=== PATIENT | female | born 1945 | race Caucasian/White ===

== ENCOUNTER 2019-08-31 12:12 | Inpatient (IN) ==
[2019-08-31] MEDS ORDERED: ACETAMINOPHEN 1,000 MG/100 ML VIAL IV STA (12:29)
[2019-08-31] MEDS ORDERED: SODIUM CHLORIDE 0.9% 1000ML 1,000 ML IV SCH ×2 (12:30)
[2019-08-31] MEDS ORDERED: AMPICILLIN 2,000 MG in SODIUM CHLOR 0.9% AD-VAN 100 ML IV STA (12:46)
[2019-08-31] MEDS ORDERED: VANCOMYCIN CONSULT ACTIVE PRN ×2 (12:46→17:27)
[2019-08-31] MEDS ORDERED: cefTRIAXone SODIUM 2,000 MG/70 ML BAG IV STA (12:46)
[2019-08-31] MEDS ORDERED: VANCOMYCIN HCL 1,500 MG in SODIUM CHLORIDE 0.9% 500 ML IV ONE (12:46)
[2019-08-31] MEDS ORDERED: DEXAMETHASONE **PF** INJ 10 MG/ML VIAL IV ONE (12:49)
[2019-08-31 12:53] LABS: Potassium 3.5 mmol/L (3.5-5.1)
[2019-08-31 12:54] LABS: Albumin Level 3.6 gm/dl (3.4-5.0); BUN Creatinine Ratio 18.1 (10-20); Calcium 8.4 mg/dl (8.5-10.1); Creatinine Clr Calc Pharmacy 43.4 ml/min; Est GFR (African American) 69.8; Est GFR (Non-African American) 60.2
[2019-08-31 12:58] LABS: Albumin Globulin Ratio 1.1 (0.9-2); Bilirubin,Total 0.5 mg/dl (0.2-1); Globulin 3.3 gm/dl (2.5-4.0); Total Protein 6.9 gm/dl (6.4-8.2); Troponin I 0.039 ng/ml (0-0.045)
[2019-08-31 13:00] LABS: Basophils # (auto) 0.01 K/uL (0-0.2); Basophils % (auto) 0.2 %; Hematocrit (blood only) 40.1 % (37-47); Hemoglobin 13.8 g/dL (12.0-16.0); Immature Granulocytes # (auto) 0.02 K/uL (0.00-0.02); Immature Granulocytes % (auto) 0.4 %; Lymphocytes # (auto) 0.46 K/uL (1.2-3.4); Lymphocytes % (auto) 8.9 %; Mean Corpuscular Hgb Conc 34.4 g/dL (32-36); Mean Corpuscular Volume 90.1 fL (80-100); Mean Platelet Volume 9.8 fL (7.4-10.4); Monocytes # (auto) 0.09 K/uL (0.11-0.59); Monocytes % (auto) 1.7 %; Neutrophils # (auto) 4.58 K/uL (1.4-6.5); Neutrophils % (auto) 88.8 %; Platelet Count 96 K/uL (130-400); Platelet Estimate Decreased (Normal); RDW Coefficient of Variation 12.7 % (11.5-14.5); RDW Standard Deviation 42.2 fL (36.4-46.3); Red Blood Count 4.45 M/uL (4.2-5.4); White Blood Count 5.16 K/uL (4.8-10.8)
[2019-08-31 13:27] LABS: Appearance Urine Clear (Clear); Bacteria Urine Automated Negative (Negative); Bilirubin Urine Negative (Negative); Blood Urine Trace (Negative); Color Urine Dark Yellow; Glucose Urine UA Negative (Negative); Ketones Urine 2+ (Negative); Leukocyte Esterase Urine Negative (Negative); Nitrite Urine Negative (Negative); Protein Urine 2+ (Negative); Specific Gravity Urine 1.026 (1.000-1.030); Urobilinogen Urine Negative (Negative); pH Urine 5.5 (4.5-7.5)
--- NOTE | 2019-08-31 13:28 | XRay Report ---
XR chest 1V portable CLINICAL HISTORY: AMS, fever COMPARISON STUDY: No previous studies for comparison. FINDINGS: Minimal parenchymal infiltrate medial left base. Lungs otherwise appear clear. Diaphragms a re smooth. IMPRESSION: Minimal parenchymal infiltrate medial left base. ACT 112: Negative or not required by law. The above report was generated using voice recognition software. It may contain grammatical, syntax or spelling errors. Electronically signed by: Ulises Melendrez M.D. 08/31/2019 1:27 PM
--- NOTE | 2019-08-31 13:48 | CT Scan Report ---
CT SCAN OF THE BRAIN WITHOUT IV CONTRAST CLINICAL HISTORY: Change in mental status. COMPARISON STUDY: No priors. TECHNIQUE: Unenhanced axial CT scan of the brain is performed from the vertex to the skull base. A do se lowering technique was utilized adhering to the principles of ALARA. CT DOSE: 1277.12 mGycm FINDINGS: Brain parenchyma: There are age-related involutional changes noting mild subcortical and periventric ular microangiopathic change. There is no hemorrhage, mass effect, or evidence of acute territorial i schemia by CT criteria. Zuniga-white matter differentiation is preserved. No extra-axial fluid collecti on is seen. Ventricles, sulci, cisterns: Prominent secondary to involutional change. Intracranial vasculature: Intracranial vessels at the skull base are normal as visualized. Calvarium: Unremarkable. Sinuses and mastoids: The visualized paranasal sinuses are clear. The mastoid air cells are well pneu matized. Orbits: The bony orbits are grossly intact. There is a right ocular lens implant. IMPRESSION: There is no hemorrhage, mass effect, or evidence of acute territorial ischemia by CT shirley lemon. ACT 112: Negative or not required by law. Electronically signed by: Sohail Marte M.D. 08/31/2019 1:46 PM
[2019-08-31] MEDS ORDERED: DOXYCYCLINE HYCLATE 100 MG in DEXTROSE 5% 100 ML IV STA (14:36)
--- NOTE | 2019-08-31 14:37 | Electrocardiogram Report ---
Test Reason : Blood Pressure : / mmHG Vent. Rate : 073 BPM Atrial Rate : 073 BPM P-R Int : 162 ms QRS Dur : 076 ms QT Int : 388 ms P-R-T Axes : 055 -44 061 degrees QTc Int : 427 ms Normal sinus rhythm Left axis deviation Septal infarct (cited on or before 28-DEC-2009) Abnormal ECG When compared with ECG of 28-DEC-2009 12:27, Nonspecific T wave abnormality now evident in Lateral leads Confirmed by Kodi Salgado ([id number]) on 08/31/2019 2:36:57 PM Referred By: REFERRED SELF Confirmed By:Kodi Salgado
[2019-08-31 15:10] LABS: Anaplasmosis Smear(Rpt to DOH) Pos for Anaplasma
--- NOTE | 2019-08-31 15:23 | Emergency Department Note ---
History of Present Illness General Chief complaint: Headache Time Seen by Provider: 08/31/19 12:19 Source: family, EMS and RN notes reviewed Mode of arrival: EMS Limitations: altered mental status History of Present Illness Provider complaint: Headache, altered mental status Maximum Pain Intensity: 10 This patient is a 73-year-old female who presents to the emergency department with complaints of headache per family to EMS. Patient apparently has a remote history of severe migraines. She developed a headache, first time in 12 years, 3 days ago. She has been in bed since that time. Her has treated her with Imitrex both yesterday and today without much benefit. Patient has not been eating or drinking except for sips of water at her 's prompting for the last 24 to 36 hours. Patient's family called the ambulance today because symptoms have not improved. They stated she says "okay and yes" to any questioning. Daughter states she has a history of hypothyroidism and hypercholesterolemia in addition to the migraines. She has no recent covert exposures except a trip to [facility] for her 's pacemaker placement. Her states she had a mask on as did he. Patient has had no vomiting or diarrhea according to family, no recent trauma or head injury. She does not take anticoagulants. Home Medications Home Medications Medication Instructions Recorded Confirmed Type levothyroxine 50 mcg PO DAILY 08/31/19 08/31/19 History pravastatin 40 mg PO DAILY 08/31/19 08/31/19 History Allergies Allergy/AdvReac Type Severity Reaction Status Date / Time Unable to Assess Allergy Unverified 08/31/19 14:40 Past Med/Surg History Medical History (Updated 08/31/19 @ 15:25 by Maria Eugenia Barbour MD) Hypercholesterolemia Hypothyroidism Migraines Social History (Updated 08/31/19 @ 15:14 by Maria Eugenia Barbour MD) marital status: Current Living Situation: Spouse Review of Systems Unobtainable due to cognitive status (Altered mental status) Physical Exam Vital Signs Vital Signs - 24 hr 08/31/19 12:30 08/31/19 13:29 08/31/19 14:17 Temperature 39.2 C H Temperature Source Oral Pulse Rate 77 Pulse Rate [Apical] 76 66 Respiratory Rate 18 18 18 Blood Pressure 130/65 Blood Pressure [Left Arm] 122/64 104/55 L Blood Pressure Mean 86 Blood Pressure Mean [Left Arm] 83 71 Pulse Oximetry 93 93 93 Oxygen Delivery Method Room Air Room Air Room Air Sepsis Recent Fever Within 48 Hours Yes Sepsis New/Unexplained Change in Mental Status No Sepsis Action Taken by Nursing No Action Required 08/31/19 14:52 Temperature 37.6 C H Temperature Source Oral Pulse Rate Pulse Rate [Apical] Respiratory Rate Blood Pressure Blood Pressure [Left Arm] Blood Pressure Mean Blood Pressure Mean [Left Arm] Pulse Oximetry Oxygen Delivery Method Sepsis Recent Fever Within 48 Hours Sepsis New/Unexplained Change in Mental Status Sepsis Action Taken by Nursing Vital signs reviewed. Noted to be febrile General: Ill-appearing 73-year-old female, in no significant distress but alte red. HEENT: No scleral icterus/conjunctival injection, PERRLA, neck supple. A traumatic. Dry mucous membranes. Cardiovascular: Regular rate and rhythm, no extra sounds. Pulmonary: Clear to auscultation bilaterally, normal work of breathing. Abdomen: Soft, nontender, nondistended, positive bowel sounds. Musculoskeletal: Atraumatic, no peripheral edema. Neurologic: Patient is arousable and answers yes to most questions. Full range of motion of the neck without pain and is able to follow some commands. Skin: Warm, dry, no rash Procedures Lumbar Puncture Time Out Performed: Yes Patient Position: left lateral decubitus Skin Prep: Povidone-Iodine 1% Local Anesthetic: lidocaine 1% Amount of anesthesia used (mL): 5 Spinal Needle Gauge: 20G Interspace Used: L3-L4 (Unsuccessful) Complications: Need to have other Practitioner Attempt and unable to obtain CSF Course Administered Medications Sodium Chloride (Nss 1000ml) 1,000 mls @ 125 mls/hr IV .Q8H COLE Stop: 09/30/19 12:29 Last Admin: 08/31/19 12:58 Dose: 125 mls/hr Documented by: [id number] Vancomycin HCl 1,500 mg/ (Sodium Chloride) 530 mls @ 200 mls/hr IV NOW ONE Stop: 08/31/19 15:24 Last Admin: 08/31/19 14:16 Dose: 200 mls/hr Documented by: [id number] Doxycycline Hyclate 100 mg/ (Dextrose) 110 mls @ 55 mls/hr IV NOW STA Stop: 08/31/19 16:35 Last Admin: 08/31/19 14:50 Dose: 55 mls/hr Documented by: [id number] Discontinued Medications Dexamethasone Sodium Phosphate (Decadron Pf) 10 mg IV NOW ONE Stop: 08/31/19 12:50 Last Admin: 08/31/19 13:34 Dose: 10 mg Documented by: [id number] Sodium Chloride (Nss 1000ml) 1,000 mls @ 500 mls/hr IV .Q2H COLE Stop: 08/31/19 14:29 Last Admin: 08/31/19 13:24 Dose: 500 mls/hr Documented by: [id number] Acetaminophen (Ofirmev) 1,000 mg in 100 mls @ 400 mls/hr IV NOW STA Stop: 08/31/19 12:43 Last Infusion: 08/31/19 13:13 Dose: 0 mls/hr Documented by: [id number] Admin: 08/31/19 12:58 Dose: 400 mls/hr Documented by: [id number] Ceftriaxone Sodium (Rocephin) 2,000 mg in 70 mls @ 140 mls/hr IV NOW STA Stop: 08/31/19 13:15 Last Infusion: 08/31/19 14:16 Dose: 0 mls/hr Documented by: [id number] Admin: 08/31/19 13:34 Dose: 140 mls/hr Documented by: [id number] Ampicillin Sodium 2,000 mg/ (Sodium Chloride) 100 mls @ 200 mls/hr IV NOW STA Stop: 08/31/19 13:15 Last Admin: 08/31/19 14:16 Dose: 200 mls/hr Documented by: [id number] Critical Care Time Critical Care Time: Yes (40) I have personally spent greater than 40 minutes of critical care time in the direct management of this patient. This includes bedside care, interpretation of diagnostic studies, and testing, discussion with consultants, patient, and family members, and other required patient management activities. This 40 minutes is in excess of all separately billable procedures. Medical Decision Making Differential Diagnosis Differential diagnosis: Etiologies such as meningitis, viral syndrome, otitis, pharyngitis, pneumonia, influenza, tickborne illness such as Lyme/anaplasmosis, urinary tract infection, septic arthritis, soft tissue infectious process, intra-abdominal process, sepsis, bacteremia, as well as others were entertained. Medical Records Attestation: I reviewed the patient's medical records. (Rohan) Home Medications Current Medication List: was personally reviewed by me Laboratory Data Attestation: I reviewed the patient's lab results. Result diagrams: 08/31/19 12:28 08/31/19 12: Lab Results 08/31/19 08/31/19 08/31/19 Range/Units 12:28 12:28 12: WBC 5.16 (4.8-10.8) K/uL RBC 4.45 (4.2-5.4) M/uL Hgb 13.8 (12.0-16.0) g/dL Hct 40.1 (37-47) % MCV 90.1 (80-100) fL MCH 31.0 (25-34) pg MCHC 34.4 (32-36) g/dL RDW Std Deviation 42.2 (36.4-46.3) fL RDW Coeff of Helen 12.7 (11.5-14.5) % Plt Count 96 L (130-400) K/uL MPV 9.8 (7.4-10.4) fL Immature Gran % (Auto) 0.4 % Neut % (Auto) 88.8 % Lymph % (Auto) 8.9 % Mclean % (Auto) 1.7 % Eos % (Auto) 0.0 % Baso % (Auto) 0.2 % Neut # (Auto) 4.58 (1.4-6.5) K/uL Lymph # (Auto) 0.46 L (1.2-3.4) K/uL Mclean # (Auto) 0.09 L (0.11-0.59) K/uL Eos # (Auto) 0.00 (0-0.5) K/uL Baso # (Auto) 0.01 (0-0.2) K/uL Immature Gran # (Auto) 0.02 (0.00-0.02) K/uL Absolute Nucleated RBC 0.00 (0-0) K/uL Nucleated RBC % (auto) 0.0 % Platelet Estimate Decreased L (Normal) Sodium 129 L (136-145) mmol/L Potassium 3.5 (3.5-5.1) mmol/L Chloride 96 L (98-107) mmol/L Carbon Dioxide 22 (21-32) mmol/L Anion Gap 11.0 (3-11) BUN 17 (7-18) mg/dl Creatinine 0.94 (0.6-1.2) mg/dl Est Cr Clr Drug Dosing 43.4 ml/min Est GFR ( Amer) 69.8 Est GFR (Non-Af Amer) 60.2 BUN/Creatinine Ratio 18.1 (10-20) Glucose 112 H (70-99) mg/dl Lactate (0.4-2.0) mmol/L Calcium 8.4 L (8.5-10.1) mg/dl Total Bilirubin 0.5 (0.2-1) mg/dl AST 81 H (15-37) U/L ALT 43 (12-78) U/L Alkaline Phosphatase 37 L (45-117) U/L Troponin I 0.039 (0-0.045) ng/ml Total Protein 6.9 (6.4-8.2) gm/dl Albumin 3.6 (3.4-5.0) gm/dl Globulin 3.3 (2.5-4.0) gm/dl Albumin/Globulin Ratio 1.1 (0.9-2) Urine Color Urine Appearance (Clear) Urine pH (4.5-7.5) Ur Specific [place] (1.000-1.030) Urine Protein (Negative) Urine Glucose (UA) (Negative) Urine Ketones (Negative) Urine Blood (Negative) Urine Nitrite (Negative) Urine Bilirubin (Negative) Urine Urobilinogen (Negative) Ur Leukocyte Esterase (Negative) Urine WBC (Auto) (0-5) /hpf Urine RBC (Auto) (0-4) /hpf U Hyaline Cast (Auto) (0-5) /lpf U Epithel Cells (Auto) (0-5) /lpf Urine Bacteria (Auto) (Negative) Anaplasma Smear See Comment A A. phagocytophilum DNA Cancelled Anaplasma Comment Pos for Anaplasma COVID-19 PCR (Negative) SARS-CoV-2 RNA (RT-PCR) 08/31/19 08/31/19 08/31/19 Range/Units 12:45 12:45 13:00 WBC (4.8-10.8) K/uL RBC (4.2-5.4) M/uL Hgb (12.0-16.0) g/dL Hct (37-47) % MCV (80-100) fL MCH (25-34) pg MCHC (32-36) g/dL RDW Std Deviation (36.4-46.3) fL RDW Coeff of Helen (11.5-14.5) % Plt Count (130-400) K/uL MPV (7.4-10.4) fL Immature Gran % (Auto) % Neut % (Auto) % Lymph % (Auto) % Mclean % (Auto) % Eos % (Auto) % Baso % (Auto) % Neut # (Auto) (1.4-6.5) K/uL Lymph # (Auto) (1.2-3.4) K/uL Mclean # (Auto) (0.11-0.59) K/uL Eos # (Auto) (0-0.5) K/uL Baso # (Auto) (0-0.2) K/uL Immature Gran # (Auto) (0.00-0.02) K/uL Absolute Nucleated RBC (0-0) K/uL Nucleated RBC % (auto) % Platelet Estimate (Normal) Sodium (136-145) mmol/L Potassium (3.5-5.1) mmol/L Chloride (98-107) mmol/L Carbon Dioxide (21-32) mmol/L Anion Gap (3-11) BUN (7-18) mg/dl Creatinine (0.6-1.2) mg/dl Est Cr Clr Drug Dosing ml/min Est GFR ( Amer) Est GFR (Non-Af Amer) BUN/Creatinine Ratio (10-20) Glucose (70-99) mg/dl Lactate (0.4-2.0) mmol/L Calcium (8.5-10.1) mg/dl Total Bilirubin (0.2-1) mg/dl AST (15-37) U/L ALT (12-78) U/L Alkaline Phosphatase (45-117) U/L Troponin I (0-0.045) ng/ml Total Protein (6.4-8.2) gm/dl Albumin (3.4-5.0) gm/dl Globulin (2.5-4.0) gm/dl Albumin/Globulin Ratio (0.9-2) Urine Color Dark Yellow Urine Appearance Clear (Clear) Urine pH 5.5 (4.5-7.5) Ur Specific [place] 1.026 (1.000-1.030) Urine Protein 2+ H (Negative) Urine Glucose (UA) Negative (Negative) Urine Ketones 2+ H (Negative) Urine Blood Trace H (Negative) Urine Nitrite Negative (Negative) Urine Bilirubin Negative (Negative) Urine Urobilinogen Negative (Negative) Ur Leukocyte Esterase Negative (Negative) Urine WBC (Auto) 1-5 (0-5) /hpf Urine RBC (Auto) 10-30 H (0-4) /hpf U Hyaline Cast (Auto) 1-5 (0-5) /lpf U Epithel Cells (Auto) 5-10 H (0-5) /lpf Urine Bacteria (Auto) Negative (Negative) Anaplasma Smear A. phagocytophilum DNA Anaplasma Comment COVID-19 PCR NEGATIVE (Negative) SARS-CoV-2 RNA (RT-PCR) Cancelled 08/31/19 Range/Units 13:03 WBC (4.8-10.8) K/uL RBC (4.2-5.4) M/uL Hgb (12.0-16.0) g/dL Hct (37-47) % MCV (80-100) fL MCH (25-34) pg MCHC (32-36) g/dL RDW Std Deviation (36.4-46.3) fL RDW Coeff of Helen (11.5-14.5) % Plt Count (130-400) K/uL MPV (7.4-10.4) fL Immature Gran % (Auto) % Neut % (Auto) % Lymph % (Auto) % Mclean % (Auto) % Eos % (Auto) % Baso % (Auto) % Neut # (Auto) (1.4-6.5) K/uL Lymph # (Auto) (1.2-3.4) K/uL Mclean # (Auto) (0.11-0.59) K/uL Eos # (Auto) (0-0.5) K/uL Baso # (Auto) (0-0.2) K/uL Immature Gran # (Auto) (0.00-0.02) K/uL Absolute Nucleated RBC (0-0) K/uL Nucleated RBC % (auto) % Platelet Estimate (Normal) Sodium (136-145) mmol/L Potassium (3.5-5.1) mmol/L Chloride (98-107) mmol/L Carbon Dioxide (21-32) mmol/L Anion Gap (3-11) BUN (7-18) mg/dl Creatinine (0.6-1.2) mg/dl Est Cr Clr Drug Dosing ml/min Est GFR ( Amer) Est GFR (Non-Af Amer) BUN/Creatinine Ratio (10-20) Glucose (70-99) mg/dl Lactate 2.6 H* (0.4-2.0) mmol/L Calcium (8.5-10.1) mg/dl Total Bilirubin (0.2-1) mg/dl AST (15-37) U/L ALT (12-78) U/L Alkaline Phosphatase (45-117) U/L Troponin I (0-0.045) ng/ml Total Protein (6.4-8.2) gm/dl Albumin (3.4-5.0) gm/dl Globulin (2.5-4.0) gm/dl Albumin/Globulin Ratio (0.9-2) Urine Color Urine Appearance (Clear) Urine pH (4.5-7.5) Ur Specific [place] (1.000-1.030) Urine Protein (Negative) Urine Glucose (UA) (Negative) Urine Ketones (Negative) Urine Blood (Negative) Urine Nitrite (Negative) Urine Bilirubin (Negative) Urine Urobilinogen (Negative) Ur Leukocyte Esterase (Negative) Urine WBC (Auto) (0-5) /hpf Urine RBC (Auto) (0-4) /hpf U Hyaline Cast (Auto) (0-5) /lpf U Epithel Cells (Auto) (0-5) /lpf Urine Bacteria (Auto) (Negative) Anaplasma Smear A. phagocytophilum DNA Anaplasma Comment COVID-19 PCR (Negative) SARS-CoV-2 RNA (RT-PCR) Imaging Data Attestation: I personally reviewed and interpreted this imaging study as follows: Radiologist's Impression: CT SCAN OF THE BRAIN WITHOUT IV CONTRAST CLINICAL HISTORY: Change in mental status. COMPARISON STUDY: No priors. TECHNIQUE: Unenhanced axial CT scan of the brain is performed from the vertex to the skull base. A dose lowering technique was utilized adhering to the principles of ALARA. CT DOSE: 1277.12 mGycm FINDINGS: Brain parenchyma: There are age-related involutional changes noting mild subcortical and periventricular microangiopathic change. There is no hemorrhage, mass effect, or evidence of acute territorial ischemia by CT criteria. Zuniga- white matter differentiation is preserved. No extra-axial fluid collection is seen. Ventricles, sulci, cisterns: Prominent secondary to involutional change. Intracranial vasculature: Intracranial vessels at the skull base are normal as visualized. Calvarium: Unremarkable. Sinuses and mastoids: The visualized paranasal sinuses are clear. The mastoid air cells are well pneumatized. Orbits: The bony orbits are grossly intact. There is a right ocular lens implant . IMPRESSION: There is no hemorrhage, mass effect, or evidence of acute territorial ischemia by CT criteria. ACT 112: Negative or not required by law. Electronically signed by: Sohail Marte M.D. 08/31/2019 1:46 PM Dictated: 08/31/19 1344 Transcribed: 08/31/19 1344 XR chest 1V portable CLINICAL HISTORY: AMS, fever COMPARISON STUDY: No previous studies for comparison. FINDINGS: Minimal parenchymal infiltrate medial left base. Lungs otherwise appear clear. Diaphragms are smooth. IMPRESSION: Minimal parenchymal infiltrate medial left base. ACT 112: Negative or not required by law. The above report was generated using voice recognition software. It may contain grammatical, syntax or spelling errors. Electronically signed by: Ulises Melendrez M.D. 08/31/2019 1:27 PM Dictated: 08/31/19 1324 Transcribed: 08/31/19 1324 ECG Data Attestation: I personally reviewed and interpreted this ECG as follows: Indication: + altered mental status Rate (beats per minute): 73 Rhythm: + normal sinus ECG Intervals/blocks: + Normal QT-c ECG [place]: + Left axis deviation ECG ST segments: + ST depression (Lateral) ECG Findings: no Q waves (Septal), no PACs and no PVCs Blood Pressure Blood Pressure Findings: Normal blood pressure Blood Pressure Disposition: did not require urgent referral MDM Narrative This patient was evaluated and appeared to be acutely ill. I did call the patient's daughter Clover by phone for most of the history. An order for cardiac monitoring was placed and the patient is found to be in a sinus rhythm at 76 bpm. Chest x-ray was performed and is significant for a minimal left basilar infiltrate. CT scan of the head was performed and is negative. Laboratory evaluation reveals a normal WBC, thrombocytopenia 96,000 and lactate of 2.6. Lumbar puncture was attempted at the bedside but unsuccessful. Given the patient's relative thrombocytopenia, further attempts were deferred to radiology. I discussed this test with Dr. Marte of radiology who will perform an LP under fluoroscopy. Patient did receive IV hydration and IV Tylenol. She was covered with IV vancomycin, IV ceftriaxone and IV ampicillin. I did discuss the case with [facility] hospitalist URI Worrell, who accepted the patient on behalf of Dr. Dumont. IV doxycycline was added on at the recommendation for the possibility of Anaplasma. Laboratory work later confirms Anaplasma. Impression & Plan Acute alteration in mental status, Headache, Fever, Anaplasmosis Discharge Plan Visit Data Chief Complaint: Headache ED Provider: Maria Eugenia Barbour Discharge Problem: Acute alteration in mental status, Headache, Fever, Anaplasmosis Forms Stand Alone Forms: My [facility] Prescriptions Prescriptions: No Action pravastatin 40 mg tablet 40 mg PO DAILY RF: 0 levothyroxine 50 mcg tablet 50 mcg PO DAILY RF: 0 Discharge Problem: Headache Qualifiers: Headache type: other headache syndrome Qualified Code(s): G44.89 - Other headache syndrome Fever Qualifiers: Fever type: unspecified Qualified Code(s): R50.9 - Fever, unspecified
--- NOTE | 2019-08-31 15:40 | Fluoroscopy Report ---
FLUOROSCOPIC GUIDED LUMBAR PUNCTURE CLINICAL HISTORY: Fever. Change in mental status. PROCEDURE: The risks, benefits, and alternatives to the procedure is discussed with the patient who v oiced understanding. Written informed consent was obtained. The patient was placed prone on the fluor oscopy table. The lower back was prepped and draped in the usual sterile fashion. 1% lidocaine was us ed for local anesthesia. A 20-gauge spinal needle was inserted into the L4-L5 interlaminar space, and approximately 10 cc of clear colorless cerebrospinal fluid was removed. The patient tolerated the pr ocedure well. A single spot fluoroscopic image was saved. There were no immediate complications. The patient was then returned to the emergency department for further observation. Fluoroscopy time: 0.3 minutes IMPRESSION: Fluoroscopic guided lumbar puncture with removal of approximately 10 cc of cerebrospinal fluid. There were no immediate complications. ACT 112: Negative or not required by law. Electronically signed by: Sohail Marte M.D. 08/31/2019 3:38 PM
[2019-08-31 16:07] LABS: Appearance CSF Clear; CSF Count Tube # 3; CSF Xanthrochromic No xanthochromia; Color CSF Colorless; Red Blood Cell CSF (A) 0 /uL (0-); Red Blood Cell CSF (B) 0 /uL (0-); Total Protein CSF 35.5 mg/dl (15-45); White Blood Cell CSF (A) 1 /uL (0-5); White Blood Cell CSF (B) 0 /uL (0-5)
--- NOTE | 2019-08-31 17:04 | History & Physical Report ---
Date of Service August 31, 2019 Assessment & Plan (1) Headache: (2) Acute alteration in mental status: (3) Anaplasmosis: (4) Thrombocytopenia: (5) Fever: (6) Migraines: Patient has history of migraine headaches, but she hasn't had one in many years. She initially thought this was a migraine but had no relief with Imitrex. After 3 days of headache without improvement, she was brought to the ED via EMS for evaluation. Upon presentation, patient's mental status was altered, and she was unable to answer questions appropriately. She was given Vancomycin, Ampicillin, Dexamethasone, Ceftriaxone due to concern for meningitis. Head CT was negative. COVID negative. WBC count normal, but noted to have thrombocytopenia. Anaplasma smear sent & noted to be positive. Thrombocytopenia, headache, and fever likely secondary to anaplasma. Mentation improved after abx and steroid. Lactic acid elevated on admission as well- improved when rechecked as well. Clear liquid diet. Advance as tolerated. Aspiration and fall precautions. 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 Recheck CMP in AM (9) Hypothyroidism: Continue levothyroxine. Check TSH (10) DVT prophylaxis: SCDs. Hold medical prophylaxis due to LP today. Admission and Anticipated Discharge Date Admission Date: August 31, 2019 History of Present Illness Chief Complaint: Headache Primary Care Provider: Alexx Morse DO Patient is a 73 yo female with PMHx of hypothyroidism, dyslipidemia, and migraine headaches who presented to the ED via EMS for [place] x 3 days. Upon presentation, the patient had severely altered mental status and was unable to give much history. Upon my exam, patient is alert and oriented x 3 and able to provide some history. She states that she hasn't has migraine headaches for many years, but thought that she was getting one over the weekend. She has had the headache x 3-4 days. She tried Imitrex without relief. She denies vision changes, hearing changes, neck rigidity, palpitations, chest pain, SOB, CASTRO, cough, N/V/D/C, abdominal pain, or urinary symptoms. She states that she has had multiple tick bites in the past- most recently in the spring 2019. She does not recall any rash. She has no history of Lyme Disease or tick borne illness. She denies sweats, chills, or fever at home. Since presentation, the patient was noted to have a fever of 39.2 C. Vitals otherwise are stable. COVID negative. WBC count within normal. Platelet count down to 96. Noted to have hyponatremia with Na+ of 129. Lactate slightly elevated at 2.6. AST elevated to 81. UA showed 2+ protein, 2+ ketones, trace blood and otherwise unremarkable. Head CT was unremarkable. CXR showed minimal parenchymal infiltrate medial left base. Lumbar puncture was completed. Patient received IV Vancomycin, Ampicillin, Ceftriaxone, Dexamethasone, and Doxycycline in the ED. Anaplasmosis smear +. Lumbar puncture pending. Allergies Allergy/AdvReac Type Severity Reaction Status Date / Time Unable to Assess Allergy Unverified 08/31/19 14:40 Home Medications Home Medications Medication Instructions Recorded Confirmed Type levothyroxine 50 mcg PO DAILY 08/31/19 08/31/19 History pravastatin 40 mg PO DAILY 08/31/19 08/31/19 History sumatriptan succinate 50 mg PO DIRECTED 08/31/19 08/31/19 History Past Med/Surg History Medical History (Updated 08/31/19 @ 20:50 by Cathryn Worrell PA-C) Hypercholesterolemia Hypothyroidism Migraines Surgical History (Updated 08/31/19 @ 20:41 by Cathryn Worrell PA-C) H/O arthroscopy of shoulder H/O tubal ligation S/P colonoscopy S/P tonsillectomy Family History (Updated 08/31/19 @ 20:40 by Cathryn Worrell PA-C) Mother Stroke Osteoporosis Father Prostate cancer Social History (Updated 08/31/19 @ 15:14 by Maria Eugenia Barbour MD) Preferred Language: Romanian Communication Ability: Effective Supervisor Vendor Quality Required: No Beliefs That Will Affect Care: None marital status: Current Living Situation: Spouse Other Information That Helps Us Care for You: No Feels Safe at Home: Yes Safety Concerns: Feels Safe At This Time Smoking Status: Never smoker Hx Alcohol Use: No Hx Substance Use: No Review of Systems Review of Systems: All systems reviewed & are unremarkable except as noted in HPI & below Physical Exam Constitutional: well developed and well nourished; no acute distress Eyes: PERRL, conjunctivae normal, anicteric sclerae ENMT: external ear and nose normal, oropharynx normal Neck: trachea midline, no thyromegaly Respiratory: normal respiratory effort, lungs clear to auscultation Cardiovascular: RRR, no murmur, no edema Musculoskeletal: Head/Neck/Chest: normocephalic, head atraumatic and neck supple; full ROM of neck Extremities: extremities normal to inspection Skin: no rashes, warm and dry Neurologic: CN's II-XI intact bilaterally Psychiatric: A+Ox3, euthymic affect Results & Data Results & Data ([facility]) Vital Signs (Past 12 Hours) Vital Signs Temp Pulse Pulse Resp BP BP Pulse Ox 08/31/19 16:15 64 18 119/65 95 08/31/19 16:00 67 18 98/59 L 95 08/31/19 15:43 64 18 96/72 L 95 08/31/19 14:52 37.6 C H 08/31/19 14:17 66 18 104/55 L 93 08/31/19 13:29 76 18 122/64 93 08/31/19 12:30 39.2 C H 77 18 130/65 93 Laboratory Results Laboratory Results - last 24 hr 08/31/19 08/31/19 08/31/19 12:28 12:28 12:28 WBC 5.16 RBC 4.45 Hgb 13.8 Hct 40.1 MCV 90.1 MCH 31.0 MCHC 34.4 RDW Std Deviation 42.2 RDW Coeff of Helen 12.7 Plt Count 96 L MPV 9.8 Immature Gran % (Auto) 0.4 Neut % (Auto) 88.8 Lymph % (Auto) 8.9 Oliver % (Auto) 1.7 Eos % (Auto) 0.0 Baso % (Auto) 0.2 Neut # (Auto) 4.58 Lymph # (Auto) 0.46 L Oliver # (Auto) 0.09 L Eos # (Auto) 0.00 Baso # (Auto) 0.01 Immature Gran # (Auto) 0.02 Absolute Nucleated RBC 0.00 Nucleated RBC % (auto) 0.0 Platelet Estimate Decreased L Peripher Smr Path Cons Sodium 129 L Potassium 3.5 Chloride 96 L Carbon Dioxide 22 Anion Gap 11.0 BUN 17 Creatinine 0.94 Est Cr Clr Drug Dosing 43.4 Est GFR ( Amer) 69.8 Est GFR (Non-Af Amer) 60.2 BUN/Creatinine Ratio 18.1 Glucose 112 H Lactate Calcium 8.4 L Total Bilirubin 0.5 AST 81 H ALT 43 Alkaline Phosphatase 37 L Troponin I 0.039 Total Protein 6.9 Albumin 3.6 Globulin 3.3 Albumin/Globulin Ratio 1.1 Urine Color Urine Appearance Urine pH Ur Specific [place] Urine Protein Urine Glucose (UA) Urine Ketones Urine Blood Urine Nitrite Urine Bilirubin Urine Urobilinogen Ur Leukocyte Esterase Urine WBC (Auto) Urine RBC (Auto) U Hyaline Cast (Auto) U Epithel Cells (Auto) Urine Bacteria (Auto) Fld Lyme DNA (PCR) CSF Appearance CSF Color Xanthrochromic CSF WBC CSF RBC CSF Cell Count Tube # CSF Chemistry Tube # CSF Glucose CSF Total Protein CSF C.neoform/gat PCR CSF CMV DNA (PCR) CSF Enterovirus (PCR) CSF E. coli K1 (PCR) CSF H. influenzae (PCR) CSF HSV I (PCR) CSF HSV II (PCR) CSF HHV 6 (PCR) CSF L.monocytogenes PCR CSF N. meningitidis PCR CSF Parechovirus (PCR) CSF S. agalactiae (PCR) CSF S. pneumoniae (PCR) CSF VZV DNA (PCR) Anaplasma Smear See Comment A A. phagocytophilum DNA Cancelled Anaplasma Comment Pos for Anaplasma Lyme Specimen Source Lyme Disease IgG Ab Lyme Disease IgM Ab COVID-19 PCR SARS-CoV-2 RNA (RT-PCR) 08/31/19 08/31/19 08/31/19 12:45 12:45 13:00 WBC RBC Hgb Hct MCV MCH MCHC RDW Std Deviation RDW Coeff of Helen Plt Count MPV Immature Gran % (Auto) Neut % (Auto) Lymph % (Auto) Oliver % (Auto) Eos % (Auto) Baso % (Auto) Neut # (Auto) Lymph # (Auto) Oliver # (Auto) Eos # (Auto) Baso # (Auto) Immature Gran # (Auto) Absolute Nucleated RBC Nucleated RBC % (auto) Platelet Estimate Peripher Smr Path Cons Sodium Potassium Chloride Carbon Dioxide Anion Gap BUN Creatinine Est Cr Clr Drug Dosing Est GFR ( Amer) Est GFR (Non-Af Amer) BUN/Creatinine Ratio Glucose Lactate Calcium Total Bilirubin AST ALT Alkaline Phosphatase Troponin I Total Protein Albumin Globulin Albumin/Globulin Ratio Urine Color Dark Yellow Urine Appearance Clear Urine pH 5.5 Ur Specific [place] 1.026 Urine Protein 2+ H Urine Glucose (UA) Negative Urine Ketones 2+ H Urine Blood Trace H Urine Nitrite Negative Urine Bilirubin Negative Urine Urobilinogen Negative Ur Leukocyte Esterase Negative Urine WBC (Auto) 1-5 Urine RBC (Auto) 10-30 H U Hyaline Cast (Auto) 1-5 U Epithel Cells (Auto) 5-10 H Urine Bacteria (Auto) Negative Fld Lyme DNA (PCR) CSF Appearance CSF Color Xanthrochromic CSF WBC CSF RBC CSF Cell Count Tube # CSF Chemistry Tube # CSF Glucose CSF Total Protein CSF C.neoform/gat PCR CSF CMV DNA (PCR) CSF Enterovirus (PCR) CSF E. coli K1 (PCR) CSF H. influenzae (PCR) CSF HSV I (PCR) CSF HSV II (PCR) CSF HHV 6 (PCR) CSF L.monocytogenes PCR CSF N. meningitidis PCR CSF Parechovirus (PCR) CSF S. agalactiae (PCR) CSF S. pneumoniae (PCR) CSF VZV DNA (PCR) Anaplasma Smear A. phagocytophilum DNA Anaplasma Comment Lyme Specimen Source Lyme Disease IgG Ab Lyme Disease IgM Ab COVID-19 PCR NEGATIVE SARS-CoV-2 RNA (RT-PCR) Cancelled 08/31/19 08/31/19 08/31/19 13:03 15:14 15:14 WBC RBC Hgb Hct MCV MCH MCHC RDW Std Deviation RDW Coeff of Helen Plt Count MPV Immature Gran % (Auto) Neut % (Auto) Lymph % (Auto) Oliver % (Auto) Eos % (Auto) Baso % (Auto) Neut # (Auto) Lymph # (Auto) Oliver # (Auto) Eos # (Auto) Baso # (Auto) Immature Gran # (Auto) Absolute Nucleated RBC Nucleated RBC % (auto) Platelet Estimate Peripher Smr Path Cons Sodium Potassium Chloride Carbon Dioxide Anion Gap BUN Creatinine Est Cr Clr Drug Dosing Est GFR ( Amer) Est GFR (Non-Af Amer) BUN/Creatinine Ratio Glucose Lactate 2.6 H* Calcium Total Bilirubin AST ALT Alkaline Phosphatase Troponin I Total Protein Albumin Globulin Albumin/Globulin Ratio Urine Color Urine Appearance Urine pH Ur Specific [place] Urine Protein Urine Glucose (UA) Urine Ketones Urine Blood Urine Nitrite Urine Bilirubin Urine Urobilinogen Ur Leukocyte Esterase Urine WBC (Auto) Urine RBC (Auto) U Hyaline Cast (Auto) U Epithel Cells (Auto) Urine Bacteria (Auto) Fld Lyme DNA (PCR) CSF Appearance CSF Color Xanthrochromic CSF WBC CSF RBC CSF Cell Count Tube # CSF Chemistry Tube # 1 CSF Glucose 65 CSF Total Protein 35.5 CSF C.neoform/gat PCR CSF CMV DNA (PCR) CSF Enterovirus (PCR) CSF E. coli K1 (PCR) CSF H. influenzae (PCR) CSF HSV I (PCR) CSF HSV II (PCR) CSF HHV 6 (PCR) CSF L.monocytogenes PCR CSF N. meningitidis PCR CSF Parechovirus (PCR) CSF S. agalactiae (PCR) CSF S. pneumoniae (PCR) CSF VZV DNA (PCR) Anaplasma Smear A. phagocytophilum DNA Anaplasma Comment Lyme Specimen Source Lyme Disease IgG Ab Pending Lyme Disease IgM Ab Pending COVID-19 PCR SARS-CoV-2 RNA (RT-PCR) 08/31/19 08/31/19 08/31/19 15:14 15:14 15:14 WBC RBC Hgb Hct MCV MCH MCHC RDW Std Deviation RDW Coeff of Helen Plt Count MPV Immature Gran % (Auto) Neut % (Auto) Lymph % (Auto) Oliver % (Auto) Eos % (Auto) Baso % (Auto) Neut # (Auto) Lymph # (Auto) Oliver # (Auto) Eos # (Auto) Baso # (Auto) Immature Gran # (Auto) Absolute Nucleated RBC Nucleated RBC % (auto) Platelet Estimate Peripher Smr Path Cons Sodium Potassium Chloride Carbon Dioxide Anion Gap BUN Creatinine Est Cr Clr Drug Dosing Est GFR ( Amer) Est GFR (Non-Af Amer) BUN/Creatinine Ratio Glucose Lactate Calcium Total Bilirubin AST ALT Alkaline Phosphatase Troponin I Total Protein Albumin Globulin Albumin/Globulin Ratio Urine Color Urine Appearance Urine pH Ur Specific [place] Urine Protein Urine Glucose (UA) Urine Ketones Urine Blood Urine Nitrite Urine Bilirubin Urine Urobilinogen Ur Leukocyte Esterase Urine WBC (Auto) Urine RBC (Auto) U Hyaline Cast (Auto) U Epithel Cells (Auto) Urine Bacteria (Auto) Fld Lyme DNA (PCR) Pending CSF Appearance Clear CSF Color Colorless Xanthrochromic No xanthochromia CSF WBC 1 CSF RBC 0 CSF Cell Count Tube # 3 CSF Chemistry Tube # Cancelled CSF Glucose Cancelled CSF Total Protein CSF C.neoform/gat PCR Pending CSF CMV DNA (PCR) Pending CSF Enterovirus (PCR) Pending CSF E. coli K1 (PCR) Pending CSF H. influenzae (PCR) Pending CSF HSV I (PCR) Pending CSF HSV II (PCR) Pending CSF HHV 6 (PCR) Pending CSF L.monocytogenes PCR Pending CSF N. meningitidis PCR Pending CSF Parechovirus (PCR) Pending CSF S. agalactiae (PCR) Pending CSF S. pneumoniae (PCR) Pending CSF VZV DNA (PCR) Pending Anaplasma Smear A. phagocytophilum DNA Anaplasma Comment Lyme Specimen Source Pending Lyme Disease IgG Ab Lyme Disease IgM Ab COVID-19 PCR SARS-CoV-2 RNA (RT-PCR) 08/31/19 15:59 WBC RBC Hgb Hct MCV MCH MCHC RDW Std Deviation RDW Coeff of Helen Plt Count MPV Immature Gran % (Auto) Neut % (Auto) Lymph % (Auto) Oliver % (Auto) Eos % (Auto) Baso % (Auto) Neut # (Auto) Lymph # (Auto) Oliver # (Auto) Eos # (Auto) Baso # (Auto) Immature Gran # (Auto) Absolute Nucleated RBC Nucleated RBC % (auto) Platelet Estimate Peripher Smr Path Cons Sodium Potassium Chloride Carbon Dioxide Anion Gap BUN Creatinine Est Cr Clr Drug Dosing Est GFR ( Amer) Est GFR (Non-Af Amer) BUN/Creatinine Ratio Glucose Lactate 0.8 Calcium Total Bilirubin AST ALT Alkaline Phosphatase Troponin I Total Protein Albumin Globulin Albumin/Globulin Ratio Urine Color Urine Appearance Urine pH Ur Specific [place] Urine Protein Urine Glucose (UA) Urine Ketones Urine Blood Urine Nitrite Urine Bilirubin Urine Urobilinogen Ur Leukocyte Esterase Urine WBC (Auto) Urine RBC (Auto) U Hyaline Cast (Auto) U Epithel Cells (Auto) Urine Bacteria (Auto) Fld Lyme DNA (PCR) CSF Appearance CSF Color Xanthrochromic CSF WBC CSF RBC CSF Cell Count Tube # CSF Chemistry Tube # CSF Glucose CSF Total Protein CSF C.neoform/gat PCR CSF CMV DNA (PCR) CSF Enterovirus (PCR) CSF E. coli K1 (PCR) CSF H. influenzae (PCR) CSF HSV I (PCR) CSF HSV II (PCR) CSF HHV 6 (PCR) CSF L.monocytogenes PCR CSF N. meningitidis PCR CSF Parechovirus (PCR) CSF S. agalactiae (PCR) CSF S. pneumoniae (PCR) CSF VZV DNA (PCR) Anaplasma Smear A. phagocytophilum DNA Anaplasma Comment Lyme Specimen Source Lyme Disease IgG Ab Lyme Disease IgM Ab COVID-19 PCR SARS-CoV-2 RNA (RT-PCR) Diagnostic Findings Head CT: IMPRESSION: There is no hemorrhage, mass effect, or evidence of acute territorial ischemia by CT criteria. CXR: IMPRESSION: Minimal parenchymal infiltrate medial left base. Code Status & VTE Plan VTE Prophylaxis Plan VTE Prophylaxis will be ordered: Yes Supervising Physician Co-Signing Physician Notes Patient is a 73-year-old female with history of hypothyroidism, dyslipidemia, migraines and other medical problems presents with history of worsening headache since 3 days duration. Also noted to have some altered mental status noted by family. Currently she is oriented x3 while in ED. States that her migraine is well controlled although her headache has been bothering her since last 3 days. Admits to having multiple tick bites recently. Please review HPI for complete details of presentation. CT head showed no acute process. Patient had lumbar puncture while in ED given headache associated with fever. On exam patient is moderately built and nourished, normocephalic atraumatic, no neck rigidity, oriented x3, lungs are clear to auscultation, normal breath sounds, S1-S2, no murmur, abdomen soft nontender, normal bowel sounds, no pedal edema, grossly no focal neurological deficits. Lumbar puncture not suggestive of meningitis. Patient is admitted for management of altered mental status, likely secondary to anaplasmosis. Peripheral smear consistent with anaplasmosis. Also noted thrombocytopenia. Code screen is negative. Patient will be treated with Rocephin, doxycycline for now. Was empirically treated for possible meningitis while in ED. Agree with neuro checks, aspiration precautions. Advance diet as tolerated. Also noted hyponatremia. Will get urine osmolality, urine sodium. We will give gentle IV fluids. Monitor sodium levels. Microscopic hematuria noted on UA. No gross hematuria. Will repeat UA tomorrow. Left basal infiltrate noted on chest x-ray x-ray. She denies any respiratory symptoms. Already getting treatment for anaplasmosis with Rocephin, doxy which we are planning to continue. Lactate levels normalized with IV fluids. I personally reviewed the record. Patient is interviewed and examined at bedside. Patient's care is coordinated with Cathryn Worrell PA-C. Please refer to the documentation above for details of patient's presentation and for discussion of other issues. (1) Fever Fever type: unspecified Qualified Code(s): R50.9 - Fever, unspecified (2) Headache Headache type: other headache syndrome Qualified Code(s): G44.89 - Other headache syndrome
[2019-08-31 17:37] LABS: Cytomegalovirus PCR Not Detected (NotDetected); Escherichia coli K1 PCR Not Detected (NotDetected); Haemophilius influenzae PCR Not Detected (NotDetected); Listeria monocytogenes PCR Not Detected (NotDetected); Neisseria meningitidis PCR Not Detected (NotDetected); Streptococcus agalactiae PCR Not Detected (NotDetected); Streptococcus pneumoniae PCR Not Detected (NotDetected)
[2019-08-31 17:38] LABS: Cryptococcus neoformans/ga PCR Not Detected (NotDetected); Enterovirus PCR Not Detected (NotDetected); Herpes Simplex Virus 1 PCR Not Detected (NotDetected); Herpes Simplex Virus 2 PCR Not Detected (NotDetected); Human Herpes Virus 6 PCR Not Detected (NotDetected); Human Parechovirus PCR Not Detected (NotDetected); Varicella Zoster Virus PCR Not Detected (NotDetected)
[2019-08-31 17:39] LABS: Lyme Ab IgG w/WB Rflx Negative (Negative); Lyme Ab IgM w/WB Rflx Negative (Negative)
[2019-08-31] MEDS ORDERED: ENOXAPARIN INJ 40 MG/0.4 ML SYR SQ SCH (18:00)
[2019-08-31] MEDS: SODIUM CHLOR 0.45% + 20MEQ KCL 20 MEQ/1,000 ML BAG IV SCH (18:16)
--- NOTE | 2019-08-31 20:10 | Pharmacy Report ---
Pharmacy Abx Initial Consult - Date of Service August 31, 2019 - Pharmacy Dosing Scope Date of Consult: 08/31/19 Consultation requested by: Cathryn Worrell PA-C Pharmacy is consulted to initiate vancomycin IV dosing therapy, order appropriate labs and adjust drug dose/frequency. - Subjective The patient is a 73 year old F admitted on 08/31/19 15:46. - Objective Height: 5 ft Weight: 60.8 kg Vital Signs (Past 12hrs): Vital Signs Temp Pulse Pulse Pulse Resp BP BP 08/31/19 18:39 36.4 C L 64 16 08/31/19 18:09 63 16 08/31/19 17:09 36.3 C L 64 16 08/31/19 17:02 36.3 C L 59 L 18 108/70 08/31/19 16:15 64 18 119/65 08/31/19 16:00 67 18 98/59 L 08/31/19 15:43 64 18 96/72 L 08/31/19 14:52 37.6 C H 08/31/19 14:17 66 18 104/55 L 08/31/19 13:29 76 18 122/64 08/31/19 12:30 39.2 C H 77 18 130/65 BP Pulse Ox 08/31/19 18:39 111/65 93 08/31/19 18:09 105/63 92 08/31/19 17:09 98/62 L 93 08/31/19 17:02 94 08/31/19 16:15 95 08/31/19 16:00 95 08/31/19 15:43 95 08/31/19 14:52 08/31/19 14:17 93 08/31/19 13:29 93 08/31/19 12:30 93 Lab Results (24hrs): Laboratory Tests (24 Hours) 08/31/19 08/31/19 12:28 12:28 WBC 5.16 Neut # (Auto) 4.58 Creatinine 0.94 Est Cr Clr Drug Dosing 43.4 Micro Results: 08/31/19 15:14 CSF Culture - Pending Cerebral Spinal Fluid 08/31/19 13:03 Aerobic Blood Culture - Pending Blood Anaerobic Blood Culture - Pending 08/31/19 12:28 Aerobic Blood Culture - Pending Blood Anaerobic Blood Culture - Pending - Assessment & Plan Assessment 73 year old F presenting with severe altered mental status and headache x 3-4 days. Lumbar puncture completed in the ED and patient started on broad spectrum empiric antibiotics to include coverage for possible bacterial meningitis. Appears unlikely based on lumbar puncture. Will follow blood and CSF cultures. Chest xray revealed minimal parenchymal infiltrate medial left base. Plan Vancomycin IV * Patient meets criteria for vancomycin AUC dosing nomogram * AUC/ROBERT is the preferred PK/PD target for vancomycin * Target AUC/ROBERT = 400-600 * AUC guided dosing is effective and associated with decreased risk of nephrotoxicity * Unsure of baseline renal function - will need to reassess renal function tomorrow * Will order vanco trough if continued beyond 48 hours Ceftriaxone IV * Given empirically covering for bacterial meningitis - dose increased to 2 g IV q12h * If meningitis ruled out - change back to q24h dosing Doxycycline PO * 100 mg PO BID - appropriate * Treating for possible anaplasmosis (intracytoplasmic neutrophilic inclusions noted) Pharmacy will continue to follow and will adjust dose/frequency as necessary. Thank you.
[2019-08-31 21:36] LABS: Thyroid Stimulating Hormone 0.142 uIu/ml (0.300-4.500)
[2019-08-31 21:48] LABS: T4 Free Thyroxine 1.13 ng/dl (0.8-1.6)
[2019-08-31] MEDS: DOXYCYCLINE HYCLATE 100 MG CAP PO SCH (22:09)
[2019-09-01 01:38] LABS: Hematocrit (blood only) 39.4 % (37-47); Hemoglobin 13.8 g/dL (12.0-16.0); Mean Corpuscular Hemoglobin 31.1 pg (25-34); Mean Corpuscular Volume 88.7 fL (80-100); RDW Standard Deviation 42.1 fL (36.4-46.3); Red Blood Count 4.44 M/uL (4.2-5.4); White Blood Count 4.17 K/uL (4.8-10.8)
[2019-09-01] MEDS ORDERED: cefTRIAXone SODIUM 2,000 MG in DEXTROSE 5% 50 ML IV SCH ×2 (02:00→14:00)
[2019-09-01 02:03] LABS: Mean Platelet Volume 9.9 fL (7.4-10.4); Platelet Count 65 K/uL (130-400)
[2019-09-01 02:04] LABS: Albumin Globulin Ratio 0.9 (0.9-2); BUN Creatinine Ratio 19.9 (10-20); Bilirubin,Total 0.4 mg/dl (0.2-1); Calcium 7.4 mg/dl (8.5-10.1); Creatinine Clr Calc Pharmacy 49.2 ml/min; Est GFR (African American) 81.1; Globulin 3.5 gm/dl (2.5-4.0); Potassium 4.1 mmol/L (3.5-5.1); Total Protein 6.5 gm/dl (6.4-8.2)
[2019-09-01] MEDS: LEVOTHYROXINE SODIUM 50 MCG TABLET PO SCH (05:24)
[2019-09-01] MEDS: SODIUM CHLOR 0.45% + 20MEQ KCL 20 MEQ/1,000 ML BAG IV SCH (06:16)
[2019-09-01] MEDS: PRAVASTATIN SOD 40 MG TAB PO SCH (08:11)
[2019-09-01] MEDS: DOXYCYCLINE HYCLATE 100 MG CAP PO SCH ×2 (08:11→20:02)
[2019-09-01 09:59] LABS: Appearance Urine Clear (Clear); Bilirubin Urine Negative (Negative); Blood Urine Trace (Negative); Color Urine Yellow; Glucose Urine UA Negative (Negative); Ketones Urine Negative (Negative); Leukocyte Esterase Urine Negative (Negative); Nitrite Urine Negative (Negative); Protein Urine Negative (Negative); Specific Gravity Urine 1.006 (1.000-1.030); Urobilinogen Urine Negative (Negative); pH Urine 6.5 (4.5-7.5)
[2019-09-01 10:34] LABS: Epithelial Cell Urine 0-5 /lpf (0-5); RBC Urine 0-4 /hpf (0-4); WBC Urine 0-5 /hpf (0-5)
[2019-09-01 10:35] LABS: Bacteria Urine Negative (Negative)
[2019-09-01] MEDS: cefTRIAXone SODIUM 2,000 MG in DEXTROSE 5% 50 ML IV SCH (12:06)
[2019-09-01] MEDS: CALCIUM CARBONATE 500 MG CHEWABLE TAB PO PRN (12:34)
[2019-09-01] MEDS ORDERED: VANCOMYCIN HCL 1,250 MG in SODIUM CHLORIDE 0.9% 250 ML IV SCH (14:00)
[2019-09-01] MEDS: ACETAMINOPHEN 325 MG TAB PO PRN (20:01)
--- NOTE | 2019-09-01 20:47 | Hospitalist Progress Note ---
Date of Service September 01, 2019 Assessment & Plan (1) Headache: (2) Acute alteration in mental status: (3) Anaplasmosis: (4) Thrombocytopenia: (5) Fever: (6) Migraines: Patient has history of migraine headaches, but she hasn't had one in many years. She initially thought this was a migraine but had no relief with Imitrex. After 3 days of headache without improvement, she was brought to the ED via EMS for evaluation. Upon presentation, patient's mental status was altered, and she was unable to answer questions appropriately. She was given Vancomycin, Ampicillin, Dexamethasone, Ceftriaxone due to concern for meningitis. LP obtained, unremarkable. Head CT was negative. COVID negative. WBC count normal, but noted to have thrombocytopenia. Anaplasma smear sent & noted to be positive. Thrombocytopenia, headache, and fever likely secondary to anaplasma. Mentation improved after abx and steroid. Currently mental status back to baseline. Lactic acid elevated on admission as well- improved when rechecked as well. Clear liquid diet. Advance as tolerated. Aspiration and fall precautions. 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 Recheck CMP in AM (9) Hypothyroidism: Continue levothyroxine. Check TSH (10) DVT prophylaxis: SCDs. Admission and Anticipated Discharge Date Admission Date: August 31, 2019 Subjective Pt is sitting up in chair, in NAD. She is alert and oriented, answering questions appropriately. Says yesterday " she was out of it". She still feels quite week. She has Hair catheter that was placed yesterday in ED as she was incontinent. Pt wants to keep Hair for now. Will re-address again tomorrow, or later today. Poor appetite, says food tastes too salty, will place on low sodium diet. Pt now remains afebrile , but she was febrile in ED yesterday. Review of Systems Review of Systems: All systems reviewed & are unremarkable except as noted in HPI & below Constitutional: no fever and no chills Respiratory: no cough and no dyspnea Cardiovascular: no chest pain and no palpitations Gastrointestinal: no abdominal pain, no nausea and no vomiting Physical Exam Physical Exam: Constitutional: elderly female sitting up in a chair, well developed and well nourished; no acute distress Eyes: PERRL, conjunctivae normal, anicteric sclerae ENMT: external ear and nose normal, oropharynx normal Neck: trachea midline, no thyromegaly Respiratory: normal respiratory effort, lungs clear to auscultation Cardiovascular: RRR, no murmur, no edema Musculoskeletal: Head/Neck/Chest: normocephalic, head atraumatic and neck supple; full ROM of neck Extremities: extremities normal to inspection Abdomen: bowel sounds present, soft, no tenderness to palpation : Hair catheter placed, drains clear yellow urine Skin: no rashes, warm and dry Neurologic: no facial asymmetry, speech fluent, moves extremities spontaneously Psychiatric: A+Ox3, euthymic affect Results & Data Results & Data ([facility]) Vital Signs (Past 12 Hours) Vital Signs Temp Pulse Pulse Resp BP BP Pulse Ox 09/01/19 19:15 37.5 C 63 18 118/72 94 09/01/19 16:16 36.8 C 60 18 119/73 97 09/01/19 12:32 36.8 C 69 18 114/73 95 Laboratory Results 09/01/19 09/01/19 09/01/19 Range/Units 09:42 01:27 01:27 WBC 4.17 L (4.8-10.8) K/uL RBC 4.44 (4.2-5.4) M/uL Hgb 13.8 (12.0-16.0) g/dL Hct 39.4 (37-47) % MCV 88.7 (80-100) fL MCH 31.1 (25-34) pg MCHC 35.0 (32-36) g/dL RDW Std Deviation 42.1 (36.4-46.3) fL RDW Coeff of Helen 13.0 (11.5-14.5) % Plt Count 65 L (130-400) K/uL MPV 9.9 (7.4-10.4) fL Sodium 135 L (136-145) mmol/L Potassium 4.1 D (3.5-5.1) mmol/L Chloride 105 (98-107) mmol/L Carbon Dioxide 25 (21-32) mmol/L Anion Gap 5.0 (3-11) BUN 16 (7-18) mg/dl Creatinine 0.83 (0.6-1.2) mg/dl Est Cr Clr Drug Dosing 49.2 ml/min Est GFR ( Amer) 81.1 Est GFR (Non-Af Amer) 70.0 BUN/Creatinine Ratio 19.9 (10-20) Glucose 153 H (70-99) mg/dl Calcium 7.4 L (8.5-10.1) mg/dl Total Bilirubin 0.4 (0.2-1) mg/dl AST 94 H (15-37) U/L ALT 50 (12-78) U/L Alkaline Phosphatase 37 L (45-117) U/L Total Protein 6.5 (6.4-8.2) gm/dl Albumin 3.0 L (3.4-5.0) gm/dl Globulin 3.5 (2.5-4.0) gm/dl Albumin/Globulin Ratio 0.9 (0.9-2) TSH (0.300-4.500) uIu/ml Free T4 (0.8-1.6) ng/dl Urine Color Yellow Urine Appearance Clear (Clear) Urine pH 6.5 (4.5-7.5) Ur Specific Moro 1.006 (1.000-1.030) Urine Protein Negative (Negative) Urine Glucose (UA) Negative (Negative) Urine Ketones Negative (Negative) Urine Blood Trace H (Negative) Urine Nitrite Negative (Negative) Urine Bilirubin Negative (Negative) Urine Urobilinogen Negative (Negative) Ur Leukocyte Esterase Negative (Negative) Urine RBC 0-4 (0-4) /hpf Urine WBC 0-5 (0-5) /hpf Ur Epithelial Cells 0-5 (0-5) /lpf Urine Bacteria Negative (Negative) Urine Osmolality (500-800) mOsm/kg Ur Random Sodium mmol/L 09/01/19 08/31/19 08/31/19 Range/Units 01:27 20:55 13:00 WBC (4.8-10.8) K/uL RBC (4.2-5.4) M/uL Hgb (12.0-16.0) g/dL Hct (37-47) % MCV (80-100) fL MCH (25-34) pg MCHC (32-36) g/dL RDW Std Deviation (36.4-46.3) fL RDW Coeff of Helen (11.5-14.5) % Plt Count (130-400) K/uL MPV (7.4-10.4) fL Sodium 135 L 132 L (136-145) mmol/L Potassium (3.5-5.1) mmol/L Chloride (98-107) mmol/L Carbon Dioxide (21-32) mmol/L Anion Gap (3-11) BUN (7-18) mg/dl Creatinine (0.6-1.2) mg/dl Est Cr Clr Drug Dosing ml/min Est GFR ( Amer) Est GFR (Non-Af Amer) BUN/Creatinine Ratio (10-20) Glucose (70-99) mg/dl Calcium (8.5-10.1) mg/dl Total Bilirubin (0.2-1) mg/dl AST (15-37) U/L ALT (12-78) U/L Alkaline Phosphatase (45-117) U/L Total Protein (6.4-8.2) gm/dl Albumin (3.4-5.0) gm/dl Globulin (2.5-4.0) gm/dl Albumin/Globulin Ratio (0.9-2) TSH 0.142 L (0.300-4.500) uIu/ml Free T4 1.13 (0.8-1.6) ng/dl Urine Color Urine Appearance (Clear) Urine pH (4.5-7.5) Ur Specific Moro (1.000-1.030) Urine Protein (Negative) Urine Glucose (UA) (Negative) Urine Ketones (Negative) Urine Blood (Negative) Urine Nitrite (Negative) Urine Bilirubin (Negative) Urine Urobilinogen (Negative) Ur Leukocyte Esterase (Negative) Urine RBC (0-4) /hpf Urine WBC (0-5) /hpf Ur Epithelial Cells (0-5) /lpf Urine Bacteria (Negative) Urine Osmolality (500-800) mOsm/kg Ur Random Sodium 37 mmol/L 08/31/19 Range/Units 13:00 WBC (4.8-10.8) K/uL RBC (4.2-5.4) M/uL Hgb (12.0-16.0) g/dL Hct (37-47) % MCV (80-100) fL MCH (25-34) pg MCHC (32-36) g/dL RDW Std Deviation (36.4-46.3) fL RDW Coeff of Helen (11.5-14.5) % Plt Count (130-400) K/uL MPV (7.4-10.4) fL Sodium (136-145) mmol/L Potassium (3.5-5.1) mmol/L Chloride (98-107) mmol/L Carbon Dioxide (21-32) mmol/L Anion Gap (3-11) BUN (7-18) mg/dl Creatinine (0.6-1.2) mg/dl Est Cr Clr Drug Dosing ml/min Est GFR ( Amer) Est GFR (Non-Af Amer) BUN/Creatinine Ratio (10-20) Glucose (70-99) mg/dl Calcium (8.5-10.1) mg/dl Total Bilirubin (0.2-1) mg/dl AST (15-37) U/L ALT (12-78) U/L Alkaline Phosphatase (45-117) U/L Total Protein (6.4-8.2) gm/dl Albumin (3.4-5.0) gm/dl Globulin (2.5-4.0) gm/dl Albumin/Globulin Ratio (0.9-2) TSH (0.300-4.500) uIu/ml Free T4 (0.8-1.6) ng/dl Urine Color Urine Appearance (Clear) Urine pH (4.5-7.5) Ur Specific Moro (1.000-1.030) Urine Protein (Negative) Urine Glucose (UA) (Negative) Urine Ketones (Negative) Urine Blood (Negative) Urine Nitrite (Negative) Urine Bilirubin (Negative) Urine Urobilinogen (Negative) Ur Leukocyte Esterase (Negative) Urine RBC (0-4) /hpf Urine WBC (0-5) /hpf Ur Epithelial Cells (0-5) /lpf Urine Bacteria (Negative) Urine Osmolality 847 H (500-800) mOsm/kg Ur Random Sodium mmol/L Medications Administered Current Inpatient Medications Acetaminophen (Tylenol) 650 mg PO Q8 PRN PRN Reason: Pain or Fever Stop: 09/30/19 17:08 Last Admin: 09/01/19 20:01 Dose: 650 mg Documented by: Calcium Carbonate (Tums) 500 mg PO Q4 PRN PRN Reason: Indigestion Stop: 10/01/19 12:08 Last Admin: 09/01/19 12:34 Dose: 500 mg Documented by: Doxycycline Hyclate (Vibramycin) 100 mg PO BID [facility] Stop: 09/10/19 20:59 Last Admin: 09/01/19 20:02 Dose: 100 mg Documented by: Ceftriaxone Sodium 2,000 mg/ (Dextrose) 50 mls @ 100 mls/hr IV Q24H [facility]; Protocol Stop: 09/03/19 11:59 Last Infusion: 09/01/19 13:20 Dose: Infused Documented by: Levothyroxine Sodium (Synthroid) 50 mcg PO DAILYBB [facility] Stop: 10/01/19 06:29 Last Admin: 09/01/19 05:24 Dose: 50 mcg Documented by: Pravastatin Sodium (Pravachol) 40 mg PO DAILY [facility] Stop: 10/01/19 08:59 Last Admin: 09/01/19 08:11 Dose: 40 mg Documented by: (1) Fever Fever type: unspecified Qualified Code(s): R50.9 - Fever, unspecified (2) Headache Headache type: other headache syndrome Qualified Code(s): G44.89 - Other headache syndrome
[2019-09-02] MEDS: LEVOTHYROXINE SODIUM 50 MCG TABLET PO SCH (05:50)
[2019-09-02] MEDS: ACETAMINOPHEN 325 MG TAB PO PRN (08:56)
[2019-09-02] MEDS: CALCIUM CARBONATE 500 MG CHEWABLE TAB PO PRN (08:56)
[2019-09-02] MEDS: PRAVASTATIN SOD 40 MG TAB PO SCH (08:57)
[2019-09-02] MEDS: DOXYCYCLINE HYCLATE 100 MG CAP PO SCH ×2 (08:57→20:37)
[2019-09-02 10:20] LABS: Hematocrit (blood only) 40.5 % (37-47); Hemoglobin 13.8 g/dL (12.0-16.0); Mean Corpuscular Hemoglobin 30.9 pg (25-34); Mean Corpuscular Hgb Conc 34.1 g/dL (32-36); Mean Corpuscular Volume 90.8 fL (80-100); RDW Coefficient of Variation 13.5 % (11.5-14.5); RDW Standard Deviation 44.7 fL (36.4-46.3); Red Blood Count 4.46 M/uL (4.2-5.4); White Blood Count 4.68 K/uL (4.8-10.8)
[2019-09-02 10:39] LABS: Albumin Level 3.3 gm/dl (3.4-5.0); BUN Creatinine Ratio 17.2 (10-20); Calcium 8.5 mg/dl (8.5-10.1); Creatinine Clr Calc Pharmacy 48.1 ml/min; Est GFR (African American) 82.3; Magnesium 2.2 mg/dl (1.8-2.4)
[2019-09-02 10:44] LABS: Basophils # (auto) 0.04 K/uL (0-0.2); Basophils % (auto) 0.9 %; Eosinophils # (auto) 0.01 K/uL (0-0.5); Eosinophils % (auto) 0.2 %; Immature Granulocytes # (auto) 0.02 K/uL (0.00-0.02); Immature Granulocytes % (auto) 0.4 %; Lymphocytes # (auto) 1.08 K/uL (1.2-3.4); Lymphocytes % (auto) 23.1 %; Mean Platelet Volume 11.6 fL (7.4-10.4); Monocytes # (auto) 0.55 K/uL (0.11-0.59); Monocytes % (auto) 11.8 %; Neutrophils # (auto) 2.98 K/uL (1.4-6.5); Neutrophils % (auto) 63.6 %; Platelet Count 87 K/uL (130-400)
[2019-09-02 10:50] LABS: Bilirubin,Total 0.5 mg/dl (0.2-1); Globulin 3.2 gm/dl (2.5-4.0); Total Protein 6.5 gm/dl (6.4-8.2)
[2019-09-02] MEDS: cefTRIAXone SODIUM 2,000 MG in DEXTROSE 5% 50 ML IV SCH (11:24)
[2019-09-02] MEDS ORDERED: POTASSIUM CHLORIDE 20 MEQ TABCR PO ONE (11:45)
--- NOTE | 2019-09-02 14:52 | Hospitalist Progress Note ---
Date of Service September 02, 2019 Assessment & Plan (1) Anaplasmosis: Presented with headache, fever and weakness Noted to have anaplasmosis and blood is been Received vancomycin, ampicillin, dexamethasone, ceftriaxone due to concern of meningitis LP ruled out any meningitis Has been getting ceftriaxone and doxycycline Clinically a lot better Likely to be discharged tomorrow (2) Thrombocytopenia: Secondary to anaplasmosis Has minimal elevation of LFTs as well Expected to improve (3) Headache: Has history of migraine Initially the headache was thought to be due to possible meningitis LP ruled out meningitis Headache is much better today (4) Migraines: History of migraine Doubt any acute attack (5) Acute alteration in mental status: Metabolic encephalopathy in setting of hyponatremia and anaplasmosis treated and resolved with IV antibiotics, IV NSS, and IV Dexamethasone Mental impairment has been clearing up (6) Hyponatremia: 1/2 NSS w/ KCL Continue to monitor sodium level Q6h Hyponatremia is much better today with normalization of sodium level at 136 (7) Hypothyroidism: Continue levothyroxine. Check TSH-minimally low at 0.143 with normal T4 Likely secondary to acute infection DVT prophylaxis SCDs due to thrombocytopenia CODE STATUS Full code Admission and Anticipated Discharge Date Admission Date: August 31, 2019 Subjective The patient was seen and examined in medical floor She still complains to have ongoing weakness Otherwise denies any symptoms Has been participating in physical therapy with minimal dizziness on ambulation Review of Systems Review of Systems: All systems reviewed and are unremarkable except as noted below Constitutional: + weakness Physical Exam Physical Exam: Sitting on a chair without any acute distress Constitutional: + ill appearing and + thin; no acute distress Eyes: PERRL, conjunctivae normal, anicteric sclerae ENMT: external ear and nose normal, oropharynx normal Neck: trachea midline, no thyromegaly Respiratory: normal respiratory effort; no respiratory distress Auscultation: lungs clear to auscultation bilaterally Cardiovascular: Rate/Rhythm: regular rate and regular rhythm Heart Sounds: no murmur Gastrointestinal (Abdomen): Inspection/Auscultation: abdomen normal to inspection and normal bowel sounds; abdomen not distended Percussion/Palpa tion: abdomen soft; abdomen nontender Musculoskeletal: No acute arthritis involving any joints Neurologic: moves all extremities; no focal motor deficits Lymphatic: no cervical or axillary lymphadenopathy Results & Data Results & Data ([facility]) Vital Signs (Past 12 Hours) Vital Signs Temp Pulse Pulse Resp BP Pulse Ox 09/02/19 12:00 36.3 C L 63 20 100/63 97 09/02/19 10:26 69 09/02/19 08:01 69 09/02/19 07:37 37.0 C 67 20 102/66 94 09/02/19 03:01 36.7 C 70 18 117/74 95 Laboratory Results Short CBC 09/02/19 Range/Units 09:54 WBC 4.68 L (4.8-10.8) K/uL Hgb 13.8 (12.0-16.0) g/dL Hct 40.5 (37-47) % Plt Count 87 L (130-400) K/uL BMP 09/02/19 09:54 Sodium 136 Potassium 3.0 L D Chloride 105 Carbon Dioxide 24 BUN 14 Creatinine 0.82 Glucose 108 H Calcium 8.5 Liver Function 09/02/19 Range/Units 09:54 Total Bilirubin 0.5 (0.2-1) mg/dl AST 66 H (15-37) U/L ALT 46 (12-78) U/L Alkaline Phosphatase 35 L (45-117) U/L Albumin 3.3 L (3.4-5.0) gm/dl Medications Administered Current Inpatient Medications Acetaminophen (Tylenol) 650 mg PO Q8 PRN PRN Reason: Pain or Fever Stop: 09/30/19 17:08 Last Admin: 09/02/19 08:56 Dose: 650 mg Documented by: Calcium Carbonate (Tums) 500 mg PO Q4 PRN PRN Reason: Indigestion Stop: 10/01/19 12:08 Last Admin: 09/02/19 08:56 Dose: 500 mg Documented by: Doxycycline Hyclate (Vibramycin) 100 mg PO BID [facility] Stop: 09/10/19 20:59 Last Admin: 09/02/19 08:57 Dose: 100 mg Documented by: Ceftriaxone Sodium 2,000 mg/ (Dextrose) 50 mls @ 100 mls/hr IV Q24H [facility]; Protocol Stop: 09/03/19 11:59 Last Infusion: 09/02/19 12:05 Dose: Infused Documented by: Levothyroxine Sodium (Synthroid) 50 mcg PO DAILYBB [facility] Stop: 10/01/19 06:29 Last Admin: 09/02/19 05:50 Dose: 50 mcg Documented by: Pravastatin Sodium (Pravachol) 40 mg PO DAILY [facility] Stop: 10/01/19 08:59 Last Admin: 09/02/19 08:57 Dose: 40 mg Documented by: (1) Headache Headache type: other headache syndrome Qualified Code(s): G44.89 - Other headache syndrome
[2019-09-03] MEDS: LEVOTHYROXINE SODIUM 50 MCG TABLET PO SCH (06:22)
[2019-09-03 07:07] LABS: Hematocrit (blood only) 36.9 % (37-47); Hemoglobin 12.6 g/dL (12.0-16.0); Mean Corpuscular Hemoglobin 31.1 pg (25-34); Mean Corpuscular Hgb Conc 34.1 g/dL (32-36); Mean Corpuscular Volume 91.1 fL (80-100); RDW Coefficient of Variation 13.3 % (11.5-14.5); RDW Standard Deviation 44.6 fL (36.4-46.3); Red Blood Count 4.05 M/uL (4.2-5.4); White Blood Count 4.23 K/uL (4.8-10.8)
[2019-09-03 07:32] LABS: Mean Platelet Volume 11.1 fL (7.4-10.4); Platelet Count 84 K/uL (130-400)
[2019-09-03 07:48] LABS: BUN Creatinine Ratio 14.3 (10-20); Bilirubin,Total 0.4 mg/dl (0.2-1); Calcium 8.2 mg/dl (8.5-10.1); Creatinine Clr Calc Pharmacy 56.4 ml/min; Est GFR (African American) 97.9; Est GFR (Non-African American) 84.5; Globulin 2.9 gm/dl (2.5-4.0); Potassium 3.6 mmol/L (3.5-5.1); Total Protein 5.9 gm/dl (6.4-8.2)
[2019-09-03 08:02] LABS: Basophils # (auto) 0.07 K/uL (0-0.2); Basophils % (auto) 1.7 %; Eosinophils # (auto) 0.03 K/uL (0-0.5); Eosinophils % (auto) 0.7 %; Immature Granulocytes # (auto) 0.01 K/uL (0.00-0.02); Immature Granulocytes % (auto) 0.2 %; Lymphocytes # (auto) 1.85 K/uL (1.2-3.4); Lymphocytes % (auto) 43.7 %; Monocytes # (auto) 0.53 K/uL (0.11-0.59); Monocytes % (auto) 12.5 %; Neutrophils # (auto) 1.74 K/uL (1.4-6.5); Neutrophils % (auto) 41.2 %; Platelet Estimate Decreased (Normal)
[2019-09-03] MEDS: DOXYCYCLINE HYCLATE 100 MG CAP PO SCH (08:30)
[2019-09-03] MEDS: PRAVASTATIN SOD 40 MG TAB PO SCH (08:30)
[2019-09-03] MEDS: ACETAMINOPHEN 325 MG TAB PO PRN (08:32)
--- NOTE | 2019-09-03 11:41 | Hospitalist Progress Note ---
Date of Service September 03, 2019 Assessment & Plan (1) Headache: Has history of migraine Initially the headache was thought to be due to possible meningitis LP ruled out meningitis Headache is much better today Headache is resolved (2) Acute alteration in mental status: Metabolic encephalopathy in setting of hyponatremia and anaplasmosis treated and resolved with IV antibiotics, IV NSS, and IV Dexamethasone Mental impairment has been clearing up Resolved AMS (3) Anaplasmosis: Presented with headache, fever and weakness Noted to have anaplasmosis and blood is been Received vancomycin, ampicillin, dexamethasone, ceftriaxone due to concern of meningitis LP ruled out any meningitis Has been getting ceftriaxone and doxycycline Clinically a lot better Likely to be discharged tomorrow Clinically much better to be discharged this afternoon (4) Thrombocytopenia: Secondary to anaplasmosis Has minimal elevation of LFTs as well Expected to improve Blood pressure remains at 84 as of 09/03/2019 (5) Fever: Resolved (6) Migraines: Patient has history of migraine headaches, but she hasn't had one in many years. She initially thought this was a migraine but had no relief with Imitrex. After 3 days of headache without improvement, she was brought to the ED via EMS for evaluation. Upon presentation, patient's mental status was altered, and she was unable to answer questions appropriately. She was given Vancomycin, Ampicillin, Dexamethasone, Ceftriaxone due to concern for meningitis. LP obtained, unremarkable. Head CT was negative. COVID negative. WBC count normal, but noted to have thrombocytopenia. Anaplasma smear sent & noted to be positive. Thrombocytopenia, headache, and fever likely secondary to anaplasma. Mentation improved after abx and steroid. Currently mental status back to baseline. Lactic acid elevated on admission as well- improved when rechecked as well. Clear liquid diet. Advance as tolerated. Aspiration and fall precautions. Neuro checks No more issues (7) Hyponatremia: 1/2 NSS w/ KCL Continue to monitor sodium level Q6h Hyponatremia is much better today with normalization of sodium level at 136 (8) Hypercholesterolemia: Continue pravastatin. Recheck CMP in AM (9) Hypothyroidism: Continue levothyroxine. Check TSH-minimally low at 0.143 with normal T4 Likely secondary to acute infection DVT prophylaxis SCDs due to thrombocytopenia CODE STATUS Full code Will be discharged home this afternoon (10) DVT prophylaxis: SCDs. Admission and Anticipated Discharge Date Admission Date: August 31, 2019 Subjective The patient was seen and examined in medical floor She still complains to have ongoing weakness Otherwise denies any symptoms Has been participating in physical therapy with minimal dizziness on ambulation 09/03/2019 Patient is seen and examined in medical floor She complains to have less dizziness today and she did very well with physical therapy Denies any other symptoms and she wants to go home this afternoon Review of Systems Review of Systems: All systems reviewed and are unremarkable except as noted below Constitutional: + weakness Neurologic: + generalized weakness; no dizziness Physical Exam Physical Exam: Sitting on a chair without any acute distress Constitutional: + ill appearing and + thin; no acute distress Eyes: PERRL, conjunctivae normal, anicteric sclerae ENMT: external ear and nose normal, oropharynx normal Neck: trachea midline, no thyromegaly Respiratory: normal respiratory effort; no respiratory distress Auscultation: lungs clear to auscultation bilaterally Cardiovascular: Rate/Rhythm: regular rate and regular rhythm Heart Sounds: no murmur Gastrointestinal (Abdomen): Inspection/Auscultation: abdomen normal to inspection and normal bowel sounds; abdomen not distended Percussion/Palpation: abdomen soft; abdomen nontender Musculoskeletal: No acute arthritis involving any joints Neurologic: moves all extremities; no focal motor deficits Lymphatic: no cervical or axillary lymphadenopathy Results & Data Results & Data ([place]) Vital Signs (Past 12 Hours) Vital Signs Temp Pulse Pulse Resp BP Pulse Ox 09/03/19 07:56 36.9 C 69 18 124/73 93 09/03/19 07:19 62 09/03/19 04:10 37.0 C 63 18 118/68 94 09/03/19 00:53 71 Laboratory Results Short CBC 09/03/19 Range/Units 06:31 WBC 4.23 L (4.8-10.8) K/uL Hgb 12.6 (12.0-16.0) g/dL Hct 36.9 L (37-47) % Plt Count 84 L (130-400) K/uL BMP 09/03/19 06:31 Sodium 136 Potassium 3.6 D Chloride 104 Carbon Dioxide 26 BUN 10 Creatinine 0.71 Glucose 86 Calcium 8.2 L Liver Function 09/03/19 Range/Units 06:31 Total Bilirubin 0.4 (0.2-1) mg/dl AST 50 H (15-37) U/L ALT 39 (12-78) U/L Alkaline Phosphatase 32 L (45-117) U/L Albumin 3.0 L (3.4-5.0) gm/dl Medications Administered Current Inpatient Medications Acetaminophen (Tylenol) 650 mg PO Q8 PRN PRN Reason: Pain or Fever Stop: 09/30/19 17:08 Last Admin: 09/03/19 08:32 Dose: 650 mg Documented by: Calcium Carbonate (Tums) 500 mg PO Q4 PRN PRN Reason: Indigestion Stop: 10/01/19 12:08 Last Admin: 09/02/19 08:56 Dose: 500 mg Documented by: Doxycycline Hyclate (Vibramycin) 100 mg PO BID [facility] Stop: 09/10/19 20:59 Last Admin: 09/03/19 08:30 Dose: 100 mg Documented by: Ceftriaxone Sodium 2,000 mg/ (Dextrose) 50 mls @ 100 mls/hr IV Q24H [facility]; Protocol Stop: 09/03/19 11:59 Last Infusion: 09/02/19 12:05 Dose: Infused Documented by: Levothyroxine Sodium (Synthroid) 50 mcg PO DAILYBB [facility] Stop: 10/01/19 06:29 Last Admin: 09/03/19 06:22 Dose: 50 mcg Documented by: Pravastatin Sodium (Pravachol) 40 mg PO DAILY [facility] Stop: 10/01/19 08:59 Last Admin: 09/03/19 08:30 Dose: 40 mg Documented by: (1) Headache Headache type: other headache syndrome Qualified Code(s): G44.89 - Other headache syndrome (2) Fever Fever type: unspecified Qualified Code(s): R50.9 - Fever, unspecified
--- NOTE | 2019-09-04 08:02 | Discharge Summary ---
Date of Service September 04, 2019 Admission HPI Per Admitting Provider Patient is a 73 yo female with PMHx of hypothyroidism, dyslipidemia, and migraine headaches who presented to the ED via EMS for [place] x 3 days. Upon presentation, the patient had severely altered mental status and was unable to give much history. Upon my exam, patient is alert and oriented x 3 and able to provide some history. She states that she hasn't has migraine headaches for many years, but thought that she was getting one over the weekend. She has had the headache x 3-4 days. She tried Imitrex without relief. She denies vision changes, hearing changes, neck rigidity, palpitations, chest pain, SOB, CASTRO, cough, N/V/D/C, abdominal pain, or urinary symptoms. She states that she has had multiple tick bites in the past- most recently in the spring 2019. She does not recall any rash. She has no history of Lyme Disease or tick borne illness. She denies sweats, chills, or fever at home. Since presentation, the patient was noted to have a fever of 39.2 C. Vitals otherwise are stable. COVID negative. WBC count within normal. Platelet count down to 96. Noted to have hyponatremia with Na+ of 129. Lactate slightly elevated at 2.6. AST elevated to 81. UA showed 2+ protein, 2+ ketones, trace blood and otherwise unremarkable. Head CT was unremarkable. CXR showed minimal parenchymal infiltrate medial left base. Lumbar puncture was completed. Patient received IV Vancomycin, Ampicillin, Ceftriaxone, Dexamethasone, and Doxycycline in the ED. Anaplasmosis smear +. Lumbar puncture pending. Admission Exam Per Admitting Provider Constitutional: well developed and well nourished; no acute distress Eyes: PERRL, conjunctivae normal, anicteric sclerae ENMT: external ear and nose normal, oropharynx normal Neck: trachea midline, no thyromegaly Respiratory: normal respiratory effort, lungs clear to auscultation Cardiovascular: RRR, no murmur, no edema Musculoskeletal: Head/Neck/Chest: normocephalic, head atraumatic and neck supple; full ROM of neck Extremities: extremities normal to inspection Skin: no rashes, warm and dry Neurologic: CN's II-XI intact bilaterally Psychiatric: A+Ox3, euthymic affect Principal Diagnosis Anaplasmosis, 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, acute change in mental status-resolved, history of migraine, hypothyroidism Discharge Exam Constitutional + ill appearing and + thin; no acute distress Eyes PERRL, conjunctivae normal, anicteric sclerae ENMT external ear and nose normal, oropharynx normal Neck trachea midline, no thyromegaly Respiratory normal respiratory effort; no respiratory distress Auscultation: lungs clear to auscultation bilaterally Cardiovascular Rate/Rhythm: regular rate and regular rhythm Heart Sounds: no murmur Gastrointestinal (Abdomen) Inspection/Auscultation: abdomen normal to inspection and normal bowel sounds; abdomen not distended Percussion/Palpation: abdomen soft; abdomen nontender Neurologic moves all extremities; no focal motor deficits Lymphatic no cervical or axillary lymphadenopathy Discharge Data Allergies Allergy/AdvReac Type Severity Reaction Status Date / Time Unable to Assess Allergy Unverified 08/31/19 14:40 Consultations 08/31/19 15:23 ED Decision to Admit Stat 08/31/19 17:09 Consult Case Management - Discharge Planning Routine Ordered Studies 08/31/19 12:29 CT head/brain wo con Stat 08/31/19 14:15 FL lumbar puncture diagnostic Stat Hospital Course (1) Headache: Has history of migraine Initially the headache was thought to be due to possible meningitis LP ruled out meningitis Headache is much better today Headache is resolved (2) Acute alteration in mental status: Metabolic encephalopathy in setting of hyponatremia and anaplasmosis treated and resolved with IV antibiotics, IV NSS, and IV Dexamethasone Mental impairment has been clearing up Resolved AMS (3) Anaplasmosis: Presented with headache, fever and weakness Noted to have anaplasmosis and blood is been Received vancomycin, ampicillin, dexamethasone, ceftriaxone due to concern of meningitis LP ruled out any meningitis Has been getting ceftriaxone and doxycycline Clinically a lot better Likely to be discharged tomorrow Clinically much better to be discharged this afternoon (4) Thrombocytopenia: Secondary to anaplasmosis Has minimal elevation of LFTs as well Expected to improve Blood pressure remains at 84 as of 09/03/2019 (5) Fever: Resolved (6) Migraines: Patient has history of migraine headaches, but she hasn't had one in many years. She initially thought this was a migraine but had no relief with Imitrex. After 3 days of headache without improvement, she was brought to the ED via EMS for evaluation. Upon presentation, patient's mental status was altered, and she was unable to answer questions appropriately. She was given Vancomycin, Ampicillin, Dexamethasone, Ceftriaxone due to concern for meningitis. LP obtained, unremarkable. Head CT was negative. COVID negative. WBC count normal, but noted to have thrombocytopenia. Anaplasma smear sent & noted to be positive. Thrombocytopenia, headache, and fever likely secondary to anaplasma. Mentation improved after abx and steroid. Currently mental status back to baseline. Lactic acid elevated on admission as well- improved when rechecked as well. Clear liquid diet. Advance as tolerated. Aspiration and fall precautions. Neuro checks No more issues (7) Hyponatremia: 1/2 NSS w/ KCL Continue to monitor sodium level Q6h Hyponatremia is much better today with normalization of sodium level at 136 (8) Hypercholesterolemia: Continue pravastatin. Recheck CMP in AM (9) Hypothyroidism: Continue levothyroxine. Check TSH-minimally low at 0.143 with normal T4 Likely secondary to acute infection DVT prophylaxis SCDs due to thrombocytopenia CODE STATUS Full code Will be discharged home this afternoon (10) DVT prophylaxis: SCDs. 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, acute change in mental status-resolved, history of migraine, hypothyroidism Condition on Discharge: Good Activity: Resume your previous activity Non-emergency contact: Primary Care Provider Call non-emergency contact if: you have any medication questions and your symptoms worsen Follow-up/Referrals: Alexx Morse, [Primary Care Provider] - 09/09/19 11:00 am (09/09/2019 11:00 AM Provider Noelle Galeana MD Department General Internal Medicine [facility] ) Diet: Regular and Low Sodium (2gm) Addtl Attending Provider Instructions: Please take precaution to avoid falls Pending Studies at Discharge: No Stand-Alone Forms: [employer], Smoking Cessation Medications and DC Order Prescriptions: New doxycycline hyclate 100 mg Capsule 100 mg PO BID 5 Days Qty: 10 RF: 0 Continued pravastatin 40 mg tablet 40 mg PO DAILY RF: 0 levothyroxine 50 mcg tablet 50 mcg PO DAILY RF: 0 sumatriptan succinate 50 mg Tablet 50 mg PO DIRECTED RF: 0 Discharge Orders: Discharge Order (Routine); Ordered 09/03/19 Ordered By: Tatiana Graves Admission Data Admit Date/Time: 08/31/19 15:46 Attending Provider: Tatiana Graves Admit Provider: Brandon Dumont Primary Care Provider: Alexx Morse Other Providers: Branodn Dumont ; Epi Christy Other Interventions: Discharge Summary Assessment (RN) Last Done: 09/03/19 13:30 DC Date/Time DO NOT enter until pt leaves facility: 09/03/19 14:02
[2019-09-04 10:08] LABS: Lyme DNA PCR CSF or Synovial Not detected (Not Detected); Lyme DNA Source CSF
== END 2019-09-03 14:02 | disposition home or self-care (01) | DRG 867 ==
LOC: ED 12:12 → 2S 15:46 → SUATTDRO 15:46 → 2S 16:21 → 2N 09-01 21:37